=== PATIENT | male | born 1995 | race Caucasian/White ===

== ENCOUNTER 2022-07-16 08:33 | Emergency (ER) | payer SELFPAY ==
[2022-07-16 08:57] VITALS: BP 106/66; PULSE 78; RESP 18; TEMP 36.2; O2SAT 99; BMI 26.5
--- NOTE | 2022-07-16 09:05 | CRLHL7_ITS ---
For Patients: As a result of the Century Cures Act, medical imaging exams and procedure reports are released immediately into your electronic medical record. You may view this report before your referring provider. If you have questions, please contact your health care provider. INDICATION: Left flank pain TECHNIQUE: Axial images were obtained from the diaphragm to the pubic symphysis. Reformats were obtained in the coronal and sagittal plane. IV Contrast: 93 cc Isovue 370 Oral Contrast: None COMPARISON: None. FINDINGS: Lower chest: Unremarkable. Liver: Normal in contour with a hypodensity in the inferior aspect of the right lobe of the liver measuring 20 millimeters (series 4, image 52). Gallbladder and bile ducts: Unremarkable. No stones or inflammation. No biliary dilatation. Spleen: Unremarkable. Normal in size without mass. Pancreas: Unremarkable. No mass or inflammation. Adrenal glands: Unremarkable. No nodules. Kidneys: Unremarkable. No masses, stones, or hydronephrosis. Vasculature: Unremarkable. GI tract: The stomach is unremarkable. There are no dilated loops of large or small intestine. The appendix is seen and is unremarkable. Pelvis: Unremarkable. Bones: Unremarkable for age. IMPRESSION: 1. No dilated bowel or localized inflammation. 2. Indeterminate hypodense lesion inferior aspect of the right lobe of the liver. As clinically desired, liver MRI would have improved characterization. Please note that all CT scans at this facility use dose modulation, iterative reconstruction, and/or weight-based dosing when appropriate to reduce radiation dose to as low as reasonably achievable. Dictated by Rufus Powell MD @ 07/16/2022 11:01:32 AM (Electronically Signed)
--- NOTE | 2022-07-16 09:08 | ED_ITS ---
HPI - Abdominal Pain General Chief Complaint: Abdominal Pain Stated Complaint: abdominal pain Time Seen by Provider: 07/16/22 08:42 History of Present Illness HPI narrative: Pt is a reasonably healthy 27 year old gentleman who presents with a one hour history of left flank pain that occurred while at rest. Pt states the pain is 6/10 in intensity and sharp. Pt has no nausea, vomiting, chest pain, shortness of breath, fever or chills. Movement seems to make the pain worse. Pt has not t aken any medication for the pain. Pt otherwise has been in good health. No similar symptoms previously. Pt does have a distant history of traumatic brain injury but only minimal chronic symptoms. Pt is brought in by his brother. Related Data Home Medications Medication Instructions Recorded Confirmed No Known Home Medications 07/16/22 07/16/22 Allergies Allergy/AdvReac Type Severity Reaction Status Date / Time No Known Drug Allergies Allergy Verified 07/16/22 09:00 Review of Systems Status of ROS Reports: 10 or more systems reviewed and unremarkable except as noted in History and below [facility] Medical History Traumatic brain injury Exam Narrative: Exam Narrative: EXAM GENERAL: Patient appears comfortable and well. EYES: No scleral icterus. THYROID: no thyroid nodules or thyromegaly. LYMPH: No supraclavicular or cervical lymphadenopathy. SKIN: Visible skin seen during exam normal or with benign process only. EXT: No dependent lower extremity pedal edema. HEART: Regular rate and rhythm with no murmurs, rubs, or gallops. LUNGS: Clear to auscultation bilaterally with no crackles or wheezes. ABD: Soft, non tender, non distended. PSYCH: Good eye contact, speech is not pressured. Const: Vital Signs, click to edit/add: Vital Signs - 24 hr 07/16/22 08:57 Temperature 97.2 F L Pulse Rate [Right Pulse Oximeter] 78 Respiratory Rate 18 Blood Pressure [Ri ght Upper Arm] 106/66 Pulse Oximetry 99 Oxygen Delivery Me thod Room Air Course Course Hospital Course: Pt seen and examined. CT abd and pelvis, CBC, CMP, Amylase, UA collected. Normal saline 1 liter given, Toradol 30 mg given IV. Reevaluation(s) Reevaluation #1: CT of abd normal. Labs reassuring. Time: 11:12 Vital Signs Vital signs: Initial Vital Signs Temperature 97.2 F L 07/16/22 08:57 Temperature Source Temporal Artery Scan 07/16/22 08:57 Pulse Rate 78 07/16/22 08:57 Respiratory Rate 18 07/16/22 08:57 Blood Pressure 106/66 07/16/22 08:57 Blood Pressure Mean 79 07/16/22 08:57 Blood Pressure Position Sitting 07/16/22 08:57 Pulse Oximetry 99 07/16/22 08:57 Oxygen Delivery Method 07/16/22 08:57 Vital Signs Temperature 97.2 F L 07/16/22 08:57 Pulse Rate 78 07/16/22 08:57 Respiratory Rate 18 07/16/22 08:57 Blood Pressure 106/66 07/16/22 08:57 Pulse Oximetry 99 07/16/22 08:57 Oxygen Delivery Method 07/16/22 08:57 Temperature 97.2 F L 07/16/22 08:57 Pulse Rate 78 07/16/22 08:57 Respiratory Rate 18 07/16/22 08:57 Blood Pressure 106/66 07/16/22 08:57 Pulse Oximetry 99 07/16/22 08:57 Oxygen Delivery Method 07/16/22 08:57 MDM - Abdominal Pain MDM Narrative Medical decision making narrative: Pt presents with L sided abd pain of one hour duration. Pt given IV fluids and 30 mg of IV Toradol. Pt now feeling better. No significant findings on CT of the abd and pelvis with IV contrast. CBC, Metabolic Panel, Troponin, D dimer or UA. This is likely a muscle strain. Pt will be treated with ice, motrin, tylenol, rest and fluids with PCP follow up. Differential Diagnosis Differential diagnosis: Likely abdominal pain, acute appendicitis, calculus of kidney, constipation, diverticulitis, gastroenteritis, pancreatitis and small bowel obstruction Lab Data Labs: Lab Results 07/16/22 07/16/22 07/16/22 Range/Units 09:30 09:30 09:30 WBC 6.74 (4.50-11.00) K/uL RBC 4.76 (4.30-5.90) m/uL Hgb 14.6 (13.5-17.5) gm/dL Hct 43.6 (37.0-53.0) % MCV 92 (80-100) fL MCH 31 (26-34) pg MCHC 34 (32-36) gm/dL RDW Coeff of Kadie 12.4 (11.5-15.5) % Plt Count 304 (140-440) K/uL Neut % (Auto) 54.5 (42.0-72.0) % Lymph % (Auto) 34.3 (20-44) % [place] % (Auto) 8.9 (0.0-11.0) % Eos % (Auto) 1.3 (0.0-7.0) % Baso % (Auto) 0.9 (0.0-3.0) % Neut # (Auto) 3.67 (1.7-7.0) K/uL Lymph # (Auto) 2.31 (0.90-2.90) K/uL [place] # (Auto) 0.60 (0.00-0.90) K/UL Eos # (Auto) 0.09 (0.00-0.50) K/uL Baso # (Auto) 0.06 (0.00-0.30) K/uL D-Dimer Quant (PE/DVT) < 0.27 (0.00-0.50) ug/ml Sodium (135-149) mmol/L Potassium (3.6-5.1) mmol/L Chloride (96-114) mmol/L Carbon Dioxide (20-32) mmol/L BUN (5-24) mg/dL Creatinine (0.5-1.5) mg/dL Estimated Creat Clear Estimated GFR ml/min Glucose (60-115) mg/dL Calcium (8.4-10.6) mg/dL Total Bilirubin (0.1-1.5) mg/dL AST (12-35) U/L ALT (4-50) U/L Alkaline Phosphatase (40-150) U/L Troponin I (0.01-0.04) ng/mL Total Protein (6.0-8.3) g/dL Albumin (3.3-5.0) g/dL Amylase (18-89) U/L Urine Color Yellow (Yellow) Urine Appearance Clear (Clear) Urine pH 7.0 (5.0-8.5) Ur Specific [place] 1.020 (1.000-1.030) Urine Protein Negative (Negative) Urine Glucose (UA) Negative (Negative) Urine Ketones Negative (Negative) Urine Blood Negative (Negative) Urine Nitrite Negative (Negative) Urine Bilirubin Negative (Negative) Urine Urobilinogen 0.2 (0.2-1.0) Ur Leukocyte Esterase Negative (Negative) 07/16/22 07/16/22 Range/Units 09:30 09:30 WBC (4.50-11.00) K/uL RBC (4.30-5.90) m/uL Hgb (13.5-17.5) gm/dL Hct (37.0-53.0) % MCV (80-100) fL MCH (26-34) pg MCHC (32-36) gm/dL RDW Coeff of Kadie (11.5-15.5) % Plt Count (140-440) K/uL Neut % (Auto) (42.0-72.0) % Lymph % (Auto) (20-44) % [place] % (Auto) (0.0-11.0) % Eos % (Auto) (0.0-7.0) % Baso % (Auto) (0.0-3.0) % Neut # (Auto) (1.7-7.0) K/uL Lymph # (Auto) (0.90-2.90) K/uL [place] # (Auto) (0.00-0.90) K/UL Eos # (Auto) (0.00-0.50) K/uL Baso # (Auto) (0.00-0.30) K/uL D-Dimer Quant (PE/DVT) (0.00-0.50) ug/ml Sodium 138 (135-149) mmol/L Potassium 4.0 (3.6-5.1) mmol/L Chloride 105 (96-114) mmol/L Carbon Dioxide 27 (20-32) mmol/L BUN 17 (5-24) mg/dL Creatinine 0.9 (0.5-1.5) mg/dL Estimated Creat Clear 128.99 Estimated GFR 119 ml/min Glucose 99 (60-115) mg/dL Calcium 9.0 (8.4-10.6) mg/dL Total Bilirubin 0.7 (0.1-1.5) mg/dL AST 40 H (12-35) U/L ALT 39 (4-50) U/L Alkaline Phosphatase 75 (40-150) U/L Troponin I < 0.01 L (0.01-0.04) ng/mL Total Protein 8.2 (6.0-8.3) g/dL Albumin 4.6 (3.3-5.0) g/dL Amylase 85 (18-89) U/L Urine Color (Yellow) Urine Appearance (Clear) Urine pH (5.0-8.5) Ur Specific [place] (1.000-1.030) Urine Protein (Negative) Urine Glucose (UA) (Negative) Urine Ketones (Negative) Urine Blood (Negative) Urine Nitrite (Negative) Urine Bilirubin (Negative) Urine Urobilinogen (0.2-1.0) Ur Leukocyte Esterase (Negative) Discharge Plan Discharge Clinical Impression: Muscle strain Patient Disposition: Home, Self-Care Condition: Stable Instructions: Muscle Strain (ED) Additional Instructions: Ice Tylenol Motrin Rest Activity Level: No Restrictions Discharge Diet: Regular Prescriptions: No Action No Known Home Medications Stand Alone Forms: MyHealth Info Instructions
[2022-07-16] MEDS: KETOROLAC 30 MG/ML inj IVP (09:32)
[2022-07-16 09:41] LABS: Basophils Absolute Auto 0.06 K/uL (0.00-0.30); Basophils Percent Auto 0.9 % (0.0-3.0); Eosinophils Absolute Auto 0.09 K/uL (0.00-0.50); Eosinophils Percent Auto 1.3 % (0.0-7.0); Hematocrit 43.6 % (37.0-53.0); Hemoglobin* 14.6 gm/dL (13.5-17.5); Immature Granulocytes Abs Auto 0.01 K/uL (0.00-0.30); Immature Granulocytes Pct Auto 0.1 %; Lymphocytes Absolute Auto 2.31 K/uL (0.90-2.90); Lymphocytes Percent Auto 34.3 % (20-44); Mean Corpuscular HGB Conc 34 gm/dL (32-36); Mean Corpuscular Hemoglobin 31 pg (26-34); Mean Corpuscular Volume 92 fL (80-100); Monocytes Percent Auto 8.9 % (0.0-11.0); Neutrophils Absolute Auto 3.67 K/uL (1.7-7.0); Neutrophils Percent Auto 54.5 % (42.0-72.0); Platelet Count* 304 K/uL (140-440); RDW Coefficient of Variation % 12.4 % (11.5-15.5); Red Blood Count 4.76 m/uL (4.30-5.90); White Blood Count* 6.74 K/uL (4.50-11.00)
[2022-07-16 09:48] LABS: Slide Review Reflex No
[2022-07-16 09:50] LABS: Appearance Urine Clear (Clear); Bilirubin Urine Negative (Negative); Blood Urine Negative (Negative); Color Urine Yellow (Yellow); Glucose Urine Negative (Negative); Ketones Urine Negative (Negative); Leukocyte Esterase Urine Negative (Negative); Nitrite Urine Negative (Negative); Protein Urine Negative (Negative); Urobilinogen Urine 0.2 (0.2-1.0)
[2022-07-16] MEDS: 0.9 % SODIUM CHLORIDE 1000 ml 1,000 ML IV (09:50)
[2022-07-16 09:57] LABS: Albumin* 4.6 g/dL (3.3-5.0); Chloride* 105 mmol/L (96-114); Sodium* 138 mmol/L (135-149)
[2022-07-16 09:59] LABS: Amylase* 85 U/L (18-89); Bilirubin Total* 0.7 mg/dL (0.1-1.5); Creatinine* 0.9 mg/dL (0.5-1.5); Est. Creatinine Clearance* 128.99; Estimated Glomerular Filt Rate 119 ml/min
[2022-07-16 10:00] LABS: Alanine Aminotransferase* 39 U/L (4-50); Alkaline Phosphatase* 75 U/L (40-150); Aspartate Amino Transferase* 40 U/L (12-35); Blood Urea Nitrogen* 17 mg/dL (5-24); Carbon Dioxide* 27 mmol/L (20-32); D Dimer Quantitative* < 0.27 ug/ml (0.00-0.50); Glucose* 99 mg/dL (60-115); Total Protein* 8.2 g/dL (6.0-8.3)
[2022-07-16 10:13] LABS: Troponin I* < 0.01 ng/mL (0.01-0.04)
== END 2022-07-16 11:33 | disposition home or self-care (01) ==
PROVIDERS: Emergency Provider Internal Medicine
DX: S39.011A Strain of muscle, fascia and tendon of abdomen, initial encounter (principal)
CPT/HCPCS: 36415; 74177; 80053; 81003; 82150; 84484; 85025; 85379; 96374; 99283; 99284; 99285; J1885; J7030; Q9967